=== PATIENT | female | born 2000 | race Caucasian/White ===

== ENCOUNTER 2022-06-10 06:52 | Emergency (ER) | payer OTHER ==
[2022-06-10] MEDS ORDERED: Acetaminophen 325 MG TAB ONE (10:27)
[2022-06-10] MEDS ORDERED: Ibuprofen 200 MG TAB ONE (10:27)
== END 2022-06-10 10:04 | disposition home or self-care (01) ==
LOC: CSHERS 06:52
DX: M25.562 Pain in left knee (principal)